=== PATIENT | female | born 2005 | race Caucasian/White ===

== ENCOUNTER 2024-06-17 23:47 | Emergency (ER) | payer OTHER ==
[~2024-06-17] VITALS: Ht 167.6 cm; Wt 81.8 kg
[2024-06-18 00:06] VITALS: BP 119/71; PULSE 117; RESP 16; O2SAT 100
[2024-06-18] MEDS: DICYCLOMINE HCL 10 MG CAPSULE PO ONE (01:01)
[2024-06-18] MEDS: ONDANSETRON 4 MG TABLET PO ONE (01:01)
[2024-06-18] MEDS: MAG HYDROX/ALUMINUM HYD/SIMETH 30 ML SUSPENSION UDCUP PO ONE (01:06)
[2024-06-18 01:14] LABS: BASOPHILS % (AUTO) 0.3 % (0.0-2.0); EOSINOPHILS % (AUTO) 0.1 % (1.0-6.0); HEMATOCRIT 32.7 % (36-46); HEMOGLOBIN 10.4 g/dL (12.0-16.0); LYMPHOCYTES # (AUTO) 1.1 K/uL (1.0-4.8); MEAN CORPUSCULAR HEMOGLOBIN 22.9 pg (26.0-34.0); MEAN CORPUSCULAR HGB CONC 31.8 G/dL (31.0-37.0); MEAN CORPUSCULAR VOLUME 72 fL (80-100); MONOCYTES % (AUTO) 6.2 % (2.0-9.0); NEUTROPHILS # (AUTO) 13.3 K/uL (1.8-7.7); PLATELET COUNT (AUTO) 498 K/uL (150-450); RED BLOOD CELL COUNT(AUTO) 4.55 MIL/uL (4.00-5.20); RED CELL DISTRIBUTION WIDTH 15.9 % (11.5-14.5); WHITE BLOOD COUNT (AUTO) 15.4 K/uL (4.5-11.0)
[2024-06-18 01:23] LABS: ANION GAP 9 mmol/L (8-16); CALCIUM, TOTAL 9.3 mg/dL (8.8-10.5); CARBON DIOXIDE 25 mmol/L (22-29); CHLORIDE 103 mmol/L (98-107); CREATININE 0.73 mg/dL (0.60-1.30); GLOMERULAR FILTR. RATE CALC > 60 mL/min (>60); GLUCOSE,RANDOM 103 mg/dL (70-110); POTASSIUM 3.8 mmol/L (3.5-5.1); SODIUM SERUM 137 mmol/L (136-145); UREA NITROGEN, BLOOD 11 mg/dL (7-18)
[2024-06-18 01:28] LABS: NEUTROPHILS % (AUTO) 86.4 % (40.0-70.0)
[2024-06-18 01:29] LABS: ALBUMIN 4.1 g/dL (3.4-5.0); BILIRUBIN,DIRECT 0.2 mg/dL (0.00-0.20); TOTAL PROTEIN, SERUM 8.2 g/dL (6.4-8.2)
[2024-06-18 01:37] LABS: HCG,QUANTITATIVE 1 mIU/mL (0-6); LIPASE 45 U/L (16-77)
[2024-06-18 02:14] LABS: RBC MORPHOLOGY COMMENT ABNORMAL RBC MORPH
[2024-06-18] MEDS: SIMETHICONE 80 MG CHEWABLE TABLET CHEW ONE (02:22)
[2024-06-18] MEDS: BISMUTH SUBSALICYLATE 525 MG/30 ML SUSPENSION UDCUP PO ONE (02:23)
[2024-06-18] MEDS: OMEPRAZOLE 20 MG CAPSULE PO ONE (02:23)
[2024-06-18] MEDS ORDERED: ONDA-104 PO (03:03)
== END 2024-06-18 03:13 | disposition home or self-care (01) ==
LOC: EMS 23:47
DX: K21.9 Gastro-esophageal reflux disease without esophagitis (principal); R11.2 Nausea with vomiting, unspecified; Z87.19 Personal history of other diseases of the digestive system
CPT/HCPCS: 99284; 80048; 80076; 83690; 84702; 85025; 36415; Q0162